=== PATIENT | female | born 1950 | race Caucasian/White ===

== ENCOUNTER 2017-02-17 00:20 | Inpatient (IN) | payer MEDICARE, OTHER, MEDICAID ==
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
[2017-02-17] MEDS ORDERED: Sodium Chloride 0.9% 10 ML Syringe FLUSH PRN (03:46)
[2017-02-17] MEDS ORDERED: Furosemide 40 MG/4 ML VIAL IV ONE (03:46)
[2017-02-17] MEDS ORDERED: Acetaminophen 325 MG Tab PO ONE (03:46)
[2017-02-17] MEDS ORDERED: diphenhydrAMINE 50 MG/ML SDV IV ONE (03:46)
[2017-02-17] MEDS: Piperacillin/Tazobactam 3.375 GM in Sodium Chloride 0.9% 100 ML IV SCH ×2 (05:41→10:42)
[2017-02-17] MEDS: Insulin Aspart 100 Units/ML 3 ML Pen SUBCUT SCH ×3 (05:42→12:21)
[2017-02-17] MEDS ORDERED: Aspirin 325 MG Tab PO SCH (08:00)
[2017-02-17] MEDS ORDERED: Lisinopril 5 MG Tab PO SCH (08:00)
[2017-02-17] MEDS ORDERED: Citalopram 20 MG Tab PO SCH (08:00)
[2017-02-17] MEDS ORDERED: Cholecalciferol (Vitamin D3) 1,000 Unit Tab PO SCH (08:00)
[2017-02-17] MEDS ORDERED: Multivitamins with Iron and Minerals Tab.Chew PO SCH (08:00)
[2017-02-17] MEDS ORDERED: Insulin Detemir 100 Units/ML 3 ML Pen SUBCUT SCH ×2 (08:00→18:00)
[2017-02-17 08:40] LABS: CHLORIDE,CL 105 mmol/L (98-107); SODIUM,NA 139 mmol/L (136-145)
--- NOTE | 2017-02-17 12:27 | PCM.PN ---
- General Info Date of Service: 02/17/17 Functional Status: Reports: tolerating diet - Review of Systems General: Reports: Weakness, Other (feels a little better today) HEENT: Reports: no symptoms Pulmonary: Reports: no symptoms Cardiovascular: Reports: No Symptoms Gastrointestinal: Reports: No symptoms Genitourinary: Reports: no symptoms Musculoskeletal: Reports: no symptoms Skin: Reports: no symptoms Neurological: Reports: Pre-Existing Deficit Psychiatric: Reports: no symptoms - Patient Data Vitals - most recent: Last Vital Signs Temp 97.8 F 02/17/17 08:00 Pulse 73 02/17/17 08:00 Resp 17 02/17/17 08:00 BP 151/55 H 02/17/17 08:00 Pulse Ox 91 L 02/17/17 08:00 Weight - most recent: 274 lb I&O - last 24 hours: Intake & Output 02/16/17 02/17/17 02/17/17 22:59 06:59 14:59 Output Total 800 300 Balance -800 -300 Lab Results last 24 hrs: Laboratory Results - last 24 hr 02/17/17 02/17/17 02/17/17 Range/Units 07:00 07:00 07:00 WBC 9.1 (4.0-10.2) K/uL RBC 2.47 L (3.77-5.09) M/uL Hgb 6.8 L* (11.7-15.5) g/dL Hct 21.9 L* (34.0-46.0) % MCV 88.7 (84.0-98.0) fL MCH 27.5 L (28.2-33.3) pg MCHC 31.1 L (31.7-36.0) g/dL RDW 15.3 H (11.2-14.1) % Plt Count 234 (150-350) K/uL Neut % (Auto) 63.7 (45.0-80.0) % Lymph % (Auto) 30.2 (10.0-50.0) % [place] % (Auto) 3.9 (2.0-14.0) % Eos % (Auto) 1.8 (0.0-5.0) % Baso % (Auto) 0.4 (0.0-2.0) % Neut # (Auto) 5.81 (1.40-7.00) K/uL Lymph # (Auto) 2.76 (0.50-3.50) K/uL [place] # (Auto) 0.36 (0.00-1.00) K/uL Eos # (Auto) 0.16 (0.00-0.50) K/uL Baso # (Auto) 0.04 (0.00-0.20) K/uL PT 11.0 (9.8-11.7) SEC INR 1.0 APTT 24.2 (23.5-30.0) SEC Sodium 139 (136-145) mmol/L Potassium 4.0 (3.5-5.1) mmol/L Chloride 105 (98-107) mmol/L Carbon Dioxide 27.2 (21.0-32.0) mmol/L BUN 46 H (7-18) mg/dL Creatinine 0.93 (0.51-1.17) mg/dL Est Cr Clr Drug Dosing 54.95 mL/min Estimated GFR (MDRD) > 60 mL/min Glucose 262 H* (74-106) mg/dL POC Glucose (65-110) mg/dl Calcium 8.6 (8.5-10.1) mg/dL Blood Type Gel Antibody Screen Crossmatch 02/17/17 02/17/17 02/17/17 Range/Units 07:00 08:50 11:27 WBC (4.0-10.2) K/uL RBC (3.77-5.09) M/uL Hgb (11.7-15.5) g/dL Hct (34.0-46.0) % MCV (84.0-98.0) fL MCH (28.2-33.3) pg MCHC (31.7-36.0) g/dL RDW (11.2-14.1) % Plt Count (150-350) K/uL Neut % (Auto) (45.0-80.0) % Lymph % (Auto) (10.0-50.0) % [place] % (Auto) (2.0-14.0) % Eos % (Auto) (0.0-5.0) % Baso % (Auto) (0.0-2.0) % Neut # (Auto) (1.40-7.00) K/uL Lymph # (Auto) (0.50-3.50) K/uL [place] # (Auto) (0.00-1.00) K/uL Eos # (Auto) (0.00-0.50) K/uL Baso # (Auto) (0.00-0.20) K/uL PT (9.8-11.7) SEC INR APTT (23.5-30.0) SEC Sodium (136-145) mmol/L Potassium (3.5-5.1) mmol/L Chloride (98-107) mmol/L Carbon Dioxide (21.0-32.0) mmol/L BUN (7-18) mg/dL Creatinine (0.51-1.17) mg/dL Est Cr Clr Drug Dosing mL/min Estimated GFR (MDRD) mL/min Glucose (74-106) mg/dL POC Glucose 192 H 248 H (65-110) mg/dl Calcium (8.5-10.1) mg/dL Blood Type A NEGATIVE Gel Antibody Screen Positive Crossmatch See Detail Med Orders - Current: Current Medications Aspirin (Aspirin) 325 mg PO DAILY [facility] Last Admin: 02/17/17 08:42 Dose: 325 mg Cholecalciferol (Vitamin D3) 2,000 units PO DAILY [facility] Last Admin: 02/17/17 08:42 Dose: 2,000 units Citalopram Hydrobromide (Celexa) 20 mg PO DAILY [facility] Last Admin: 02/17/17 08:42 Dose: 20 mg Piperacillin Sod/Tazobactam (Sod 3.375 gm/ Sodium Chloride) 100 mls @ 200 mls/ hr IV Q6H [facility] Last Admin: 02/17/17 10:42 Dose: 200 mls/hr Insulin Aspart (Novolog) 12 unit SUBCUT TIDM [facility] Last Admin: 02/17/17 12:21 Dose: 12 unit Insulin Detemir (Levemir) 62 unit SUBCUT QPM [facility] Insulin Detemir (Levemir) 52 unit SUBCUT QAM [facility] Lisinopril (Prinivil) 10 mg PO BID [facility] Last Admin: 02/17/17 08:41 Dose: 10 mg Multivitamins/Folic Acid/Vitamin C (Cerovite Jr) 0.5 each PO BID [facility] Last Admin: 02/17/17 08:41 Dose: 0.5 each Sodium Chloride (Saline Flush) 10 ml FLUSH ASDIRECTED PRN PRN Reason: Keep Vein Open Discontinued Medications Acetaminophen (Tylenol) 650 mg PO NOW ONE Stop: 02/17/17 03:47 Diphenhydramine HCl (Benadryl) 25 mg IV ONETIME ONE Stop: 02/17/17 03:47 Furosemide (Lasix) 40 mg IV NOW ONE Stop: 02/17/17 03:47 Last Admin: 02/17/17 05:41 Dose: 40 mg Insulin Detemir (Levemir) 0 unit SUBCUT QAM [facility] Last Admin: 02/17/17 08:43 Dose: 52 units - Exam General: alert, cooperative, no acute distress HEENT: Mucous membr. moist/pink Neck: trachea midline, no JVD Lungs: Normal respiratory effort, Decreased breath sounds Cardiovascular: Regular Rate, Regular Rhythm GI/Abdominal Exam: Normal Bowel Sounds, Soft, Non-Tender, No Organomegaly, No Distention, No Abnormal Bruit, No Mass, Pelvis Stable (Female) Exam: Deferred Back Exam: Other (kyphosis) Extremities: Pedal Edema, Redness (usual) Skin: warm, dry, intact Neurological: other (pre-existing deficit) Psy/Mental Status: alert, normal affect, normal mood - Problem List & Annotations (1) Elevated BUN SNOMED Code(s): 539344790 Code(s): R79.9 - ABNORMAL FINDING OF BLOOD CHEMISTRY, UNSPECIFIED Status: Acute Current Visit: Yes (2) Anemia SNOMED Code(s): 926096026 Code(s): D64.9 - ANEMIA, UNSPECIFIED Status: Acute Priority: High Current Visit: Yes Qualifiers: Anemia type: unspecified type Qualified Code(s): D64.9 - Anemia, unspecified (3) Cellulitis SNOMED Code(s): 820789689 Code(s): L03.90 - CELLULITIS, UNSPECIFIED Status: Acute Current Visit: Yes Qualifiers: Site of cellulitis: unspecified site Qualified Code(s): L03.90 - Cellulitis , unspecified (4) Congestive heart failure SNOMED Code(s): 13941563 Code(s): I50.9 - HEART FAILURE, UNSPECIFIED Status: Acute Current Visit: Yes (5) Diabetes mellitus type 2 SNOMED Code(s): 30654400 Code(s): E11.9 - TYPE 2 DIABETES MELLITUS WITHOUT COMPLICATIONS Status: Acute Current Visit: Yes (6) Hyperglycemia SNOMED Code(s): 35323591 Code(s): R73.9 - HYPERGLYCEMIA, UNSPECIFIED Status: Acute Current Visit: Yes (7) Radial nerve lesions SNOMED Code(s): 674475300 Code(s): G56.30 - LESION OF RADIAL NERVE, UNSPECIFIED UPPER LIMB Status: Acute Current Visit: No - Problem List Review Problem List Initiated/Reviewed/Updated: Yes - Plan Plan:: 02/17/17 12:00 Todd Alarcon MD Feeling better today. Mild shortness of breath. Leg improved. Was just treated x10 days for out patient cellulitis with doxycycline. On 02/05/17 in clinic Hgb was 10.3. No obvious bleeding. Today hgb 6.8. Type and screen reveals A- with antibiotics. We do not have any blood available in [facility] due to the antibiotics. Also told she has CHF (known). Family desires transfer to [facility]. I called [facility] ([facility]ene) about 12:[address] Harmon who will accept the patient for transfer. Medically necessary to transfer per ambulance.
[2017-02-17] MEDS ORDERED: oxyCODONE 5 MG Tab PO ONE (12:36)
--- NOTE | 2017-02-17 12:54 | PCM.DCSUM1 ---
Discharge Summary - Discharge Data Discharge Date: 02/17/17 Discharge Disposition: DC/Tfer to Acute Hospital 02 Condition: Good - Discharge Diagnosis/Problem(s) (1) Elevated BUN SNOMED Code(s): 927119407 ICD Code: R79.9 - ABNORMAL FINDING OF BLOOD CHEMISTRY, UNSPECIFIED Status: Acute Current Visit: Yes (2) Anemia SNOMED Code(s): 500833698 ICD Code: D64.9 - ANEMIA, UNSPECIFIED Status: Acute Priority: High Current Visit: Yes Qualifiers: Qualified Code(s): D64.9 - Anemia, unspecified (3) Cellulitis SNOMED Code(s): 168196478 ICD Code: L03.90 - CELLULITIS, UNSPECIFIED Status: Acute Current Visit: Yes Qualifiers: Qualified Code(s): L03.90 - Cellulitis, unspecified (4) Congestive heart failure SNOMED Code(s): 57671174 ICD Code: I50.9 - HEART FAILURE, UNSPECIFIED Status: Acute Current Visit : Yes (5) Diabetes mellitus type 2 SNOMED Code(s): 94443849 ICD Code: E11.9 - TYPE 2 DIABETES MELLITUS WITHOUT COMPLICATIONS Status: Acute Current Visit: Yes (6) Hyperglycemia SNOMED Code(s): 17918821 ICD Code: R73.9 - HYPERGLYCEMIA, UNSPECIFIED Status: Acute Current Visit : Yes (7) Radial nerve lesions SNOMED Code(s): 677579919 ICD Code: G56.30 - LESION OF RADIAL NERVE, UNSPECIFIED UPPER LIMB Status: Acute Current Visit: No - Patient Instructions Diet: Diabetic Diet Activity: Bedrest, May Use Bathroom - Discharge Plan Home Medications: Home Meds Aspirin 325 mg PO DAILY 07/05/13 [History] Cholecalciferol (Vitamin D3) [Vitamin D3] 2,000 units PO DAILY 07/05/13 [History ] Citalopram [Citalopram HBr] 20 mg PO DAILY 07/05/13 [History] Furosemide [Lasix] 20 mg PO DAILY 07/05/13 [History] Insulin Aspart [Novolog Flexpen] 12 unit SQ TIDM 07/05/13 [History] Lisinopril 10 mg PO BID 07/05/13 [History] Multivitamin with Minerals [Multiple Vitamin] 0.5 each PO BID 07/05/13 [History] Polyethylene Glycol 3350 [Miralax] 17 gm PO DAILY PRN 07/05/13 [History] Sennosides/Docusate Sodium [Stool Softener] 1 each PO DAILY PRN 07/05/13 [ History] oxyCODONE 5 mg PO Q6HR PRN 07/05/13 [History] Insulin Detemir [Levemir] 52 unit SQ QAM 02/17/17 [History] Insulin Detemir [Levemir] 62 unit SQ QPM 02/17/17 [History] Forms: ED Department Discharge Referrals: Ninoska Guzman MD [Primary Care Provider] - - Discharge Summary/Plan Comment DC Time >30 min.: No Discharge Summary/Plan Comment: Todd Alarcon MD 66 year old female started not feeling well yesterday. Recent out patient treatment for lower leg cellulitis with doxycycline for 10 days. In the clinic hgb 10.3 on 02/05/2017. Admitted last night through ER for dx cellulits, DM type 2 out of control, CHF, anemia symptomatic. Hgb today 6.8, last night 7.2 BUN 50. She is A negative blood type with antibodies. We have no typed blood available in [facility] due to the antibodies. Family and patient wishes transfer to [facility]. Dr. Harmon will accept her for transfer. - Patient Data Vitals - Most Recent: Last Vital Signs Temp 97.8 F 02/17/17 08:00 Pulse 73 02/17/17 08:00 Resp 17 02/17/17 08:00 BP 151/55 H 02/17/17 08:00 Pulse Ox 91 L 02/17/17 08:00 Weight - Most Recent: 274 lb I&O - Last 24 hours: Intake & Output 02/16/17 02/17/17 02/17/17 22:59 06:59 14:59 Output Total 800 300 Balance -800 -300 Lab Results - Last 24 hrs: Laboratory Results - last 24 hr 02/17/17 02/17/17 02/17/17 Range/Units 07:00 07:00 07:00 WBC 9.1 (4.0-10.2) K/uL RBC 2.47 L (3.77-5.09) M/uL Hgb 6.8 L* (11.7-15.5) g/dL Hct 21.9 L* (34.0-46.0) % MCV 88.7 (84.0-98.0) fL MCH 27.5 L (28.2-33.3) pg MCHC 31.1 L (31.7-36.0) g/dL RDW 15.3 H (11.2-14.1) % Plt Count 234 (150-350) K/uL Neut % (Auto) 63.7 (45.0-80.0) % Lymph % (Auto) 30.2 (10.0-50.0) % Rincon % (Auto) 3.9 (2.0-14.0) % Eos % (Auto) 1.8 (0.0-5.0) % Baso % (Auto) 0.4 (0.0-2.0) % Neut # (Auto) 5.81 (1.40-7.00) K/uL Lymph # (Auto) 2.76 (0.50-3.50) K/uL Rincon # (Auto) 0.36 (0.00-1.00) K/uL Eos # (Auto) 0.16 (0.00-0.50) K/uL Baso # (Auto) 0.04 (0.00-0.20) K/uL PT 11.0 (9.8-11.7) SEC INR 1.0 APTT 24.2 (23.5-30.0) SEC Sodium 139 (136-145) mmol/L Potassium 4.0 (3.5-5.1) mmol/L Chloride 105 (98-107) mmol/L Carbon Dioxide 27.2 (21.0-32.0) mmol/L BUN 46 H (7-18) mg/dL Creatinine 0.93 (0.51-1.17) mg/dL Est Cr Clr Drug Dosing 54.95 mL/min Estimated GFR (MDRD) > 60 mL/min Glucose 262 H* (74-106) mg/dL POC Glucose (65-110) mg/dl Calcium 8.6 (8.5-10.1) mg/dL Blood Type Gel Antibody Screen Crossmatch 02/17/17 02/17/17 02/17/17 Range/Units 07:00 08:50 11:27 WBC (4.0-10.2) K/uL RBC (3.77-5.09) M/uL Hgb (11.7-15.5) g/dL Hct (34.0-46.0) % MCV (84.0-98.0) fL MCH (28.2-33.3) pg MCHC (31.7-36.0) g/dL RDW (11.2-14.1) % Plt Count (150-350) K/uL Neut % (Auto) (45.0-80.0) % Lymph % (Auto) (10.0-50.0) % Rincon % (Auto) (2.0-14.0) % Eos % (Auto) (0.0-5.0) % Baso % (Auto) (0.0-2.0) % Neut # (Auto) (1.40-7.00) K/uL Lymph # (Auto) (0.50-3.50) K/uL Rincon # (Auto) (0.00-1.00) K/uL Eos # (Auto) (0.00-0.50) K/uL Baso # (Auto) (0.00-0.20) K/uL PT (9.8-11.7) SEC INR APTT (23.5-30.0) SEC Sodium (136-145) mmol/L Potassium (3.5-5.1) mmol/L Chloride (98-107) mmol/L Carbon Dioxide (21.0-32.0) mmol/L BUN (7-18) mg/dL Creatinine (0.51-1.17) mg/dL Est Cr Clr Drug Dosing mL/min Estimated GFR (MDRD) mL/min Glucose (74-106) mg/dL POC Glucose 192 H 248 H (65-110) mg/dl Calcium (8.5-10.1) mg/dL Blood Type A NEGATIVE Gel Antibody Screen Positive Crossmatch See Detail Med Orders - Current: Current Medications Aspirin (Aspirin) 325 mg PO DAILY [facility] Last Admin: 02/17/17 08:42 Dose: 325 mg Cholecalciferol (Vitamin D3) 2,000 units PO DAILY [facility] Last Admin: 02/17/17 08:42 Dose: 2,000 units Citalopram Hydrobromide (Celexa) 20 mg PO DAILY [facility] Last Admin: 02/17/17 08:42 Dose: 20 mg Piperacillin Sod/Tazobactam (Sod 3.375 gm/ Sodium Chloride) 100 mls @ 200 mls/ hr IV Q6H [facility] Last Admin: 02/17/17 10:42 Dose: 200 mls/hr Insulin Aspart (Novolog) 12 unit SUBCUT TIDM [facility] Last Admin: 02/17/17 12:21 Dose: 12 unit Insulin Detemir (Levemir) 62 unit SUBCUT QPM [facility] Insulin Detemir (Levemir) 52 unit SUBCUT QAM [facility] Lisinopril (Prinivil) 10 mg PO BID [facility] Last Admin: 02/17/17 08:41 Dose: 10 mg Multivitamins/Folic Acid/Vitamin C (Cerovite Jr) 0.5 each PO BID [facility] Last Admin: 02/17/17 08:41 Dose: 0.5 each Sodium Chloride (Saline Flush) 10 ml FLUSH ASDIRECTED PRN PRN Reason: Keep Vein Open Discontinued Medications Acetaminophen (Tylenol) 650 mg PO NOW ONE Stop: 02/17/17 03:47 Diphenhydramine HCl (Benadryl) 25 mg IV ONETIME ONE Stop: 02/17/17 03:47 Furosemide (Lasix) 40 mg IV NOW ONE Stop: 02/17/17 03:47 Last Admin: 02/17/17 05:41 Dose: 40 mg Insulin Detemir (Levemir) 0 unit SUBCUT QAM [facility] Last Admin: 02/17/17 08:43 Dose: 52 units Oxycodone HCl (Oxycodone) 5 mg PO ONETIME ONE Stop: 02/17/17 12:37 *Q Meaningful Use (DIS) - VTE *Q VTE Criteria *Q: VTE Anticoagulation Contraindications: Comp/Late Effect of Care - Stroke *Q Stroke Criteria *Q: - AMI *Q AMI Criteria *Q:
[2017-02-17 13:26] VITALS: BP 153/62
[2017-02-17] MEDS ORDERED: fentaNYL 100 MCG/2 ML SDV IVPUSH ONE (13:32)
[2017-02-18] MEDS ORDERED: Insulin Detemir 100 Units/ML 3 ML Pen SUBCUT SCH (08:00)
== END 2017-02-17 13:43 | DRG 812 ==
LOC: LL.ED 00:20 → LL.MS 02:35 → LL.ED 02:40
PROVIDERS: ADMIT Family Medicine; ATTEND Family Medicine
DX: D64.9 Anemia, unspecified (principal); L03.119 Cellulitis of unspecified part of limb; E11.65 Type 2 diabetes mellitus with hyperglycemia; Z79.4 Long term (current) use of insulin; E66.9 Obesity, unspecified; Z68.30 Body mass index [BMI] 30.0-30.9, adult; Z79.82 Long term (current) use of aspirin; Z79.899 Other long term (current) drug therapy; I11.0 Hypertensive heart disease with heart failure; I50.9 Heart failure, unspecified; G56.30 Lesion of radial nerve, unspecified upper limb; R79.9 Abnormal finding of blood chemistry, unspecified
CPT/HCPCS: 36415; 71020; 80048; 81001; 82962; 83036; 83880; 85025; 85610; 85730; 86850; 86900; 86901; 87040; 99284; A9270-GY; J1815-GY; J1940; J2543; J7050

== ENCOUNTER 2017-08-16 16:31 | Emergency (ER) | payer MEDICARE, MEDICAID ==
[2017-08-16] MEDS ORDERED: Sodium Chloride 0.9% 1,000 ML IV SCH ×2 (17:00→18:30)
[2017-08-16] MEDS ORDERED: Sodium Chloride 0.9% 10 ML Syringe FLUSH PRN (17:01)
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
[2017-08-16 17:55] LABS: CHLORIDE,CL 95 mmol/L (98-107); SODIUM,NA 133 mmol/L (136-145)
[2017-08-16] MEDS ORDERED: Insulin Regular, Human 100 Units/ML 3 ML Vial IV ONE (19:15)
[2017-08-16 19:45] LABS: O2 DELIVERY DEVICE NASAL CANNULA
[2017-08-16] MEDS ORDERED: Levofloxacin/Dextrose 5%-Water 750 MG in Premix Bag 1 BAG IV SCH (19:45)
[2017-08-16 19:46] LABS: O2 FLOW RATE 2 L/min; PCO2 ARTERIAL 40 mmHG (35-45); PO2 ARTERIAL 67 mmHG (80-105)
[2017-08-16 19:47] LABS: BASE EXCESS ARTERIAL -3 mmol/L (-2-3); BICARBONATE,ARTERIAL 22.7 mmol/L (22-26); O2 SATURATION ARTERIAL 92 % (95-98)
[2017-08-16 20:52] VITALS: BP 167/53
== END 2017-08-16 19:55 ==
LOC: LL.ED 16:31
DX: A41.9 Sepsis, unspecified organism (principal); E11.10 Type 2 diabetes mellitus with ketoacidosis without coma; E11.65 Type 2 diabetes mellitus with hyperglycemia; N39.0 Urinary tract infection, site not specified; I10 Essential (primary) hypertension; Z87.891 Personal history of nicotine dependence; Z79.4 Long term (current) use of insulin; Z79.899 Other long term (current) drug therapy; Z88.8 Allergy status to other drugs, medicaments and biological substances; Z91.013 Allergy to seafood
CPT/HCPCS: 36415; 51702; 71045; 74019; 80048; 81001; 82803; 83605; 85025; 87086; 87088; 87804; 96361; 96365; 96375; 99285; J1815; J1956; J7030; 87186

== ENCOUNTER 2023-10-09 14:00 | Inpatient (IN) | payer MEDICARE, MEDICAID ==
[2023-10-09 14:18] LABS: BASOPHILS ABSOLUTE AUTO 0.03 K/uL (0.00-0.20); BASOPHILS PERCENT AUTO 0.3 % (0.0-2.0); EOSINOPHILS ABSOLUTE AUTO 0.17 K/uL (0.00-0.50); EOSINOPHILS PERCENT AUTO 1.9 % (0.0-5.0); HEMATOCRIT 32.5 % (34.0-46.0); HEMOGLOBIN 9.1 g/dL (11.7-15.5); LYMPHOCYTES ABSOLUTE AUTO 0.91 K/uL (0.50-3.50); LYMPHOCYTES PERCENT AUTO 10.1 % (10.0-50.0); MEAN CORPUSCULAR VOLUME 82.3 fL (84.0-98.0); MONOCYTES ABSOLUTE AUTO 0.56 K/uL (0.00-1.00); MONOCYTES PERCENT AUTO 6.2 % (2.0-14.0); NEUTROPHILS ABSOLUTE AUTO 7.34 K/uL (1.40-7.00); NEUTROPHILS PERCENT AUTO 81.5 % (45.0-80.0); PLATELET COUNT,PLT 219 K/uL (150-350); RED BLOOD CELL COUNT 3.95 M/uL (3.77-5.09); RED CELL DISTRIBUTION WIDTH 17.9 % (11.2-14.1)
[2023-10-09 14:38] LABS: PROTHROMBIN TIME 10.3 SEC (9.0-11.1)
[2023-10-09 14:49] LABS: ALANINE AMINOTRANSFERASE,ALT 7 U/L (12-78); ALBUMIN 3.2 g/dL (3.4-5.0); ALKALINE PHOSPHATASE 92 IU/L (46-116); ASPARTATE AMNIOTRANSFERASE,AST 6 U/L (15-37); BILIRUBIN TOTAL 0.2 mg/dL (0.2-1.0); BLOOD UREA NITROGEN,BUN 42 mg/dL (7-18); CALCIUM 8.8 mg/dL (8.5-10.1); CARBON DIOXIDE,CO2 28.1 mmol/L (21.0-32.0); CHLORIDE,CL 110 mmol/L (98-107); CREATININE 1.63 mg/dL (0.51-1.17); GLUCOSE RANDOM 92 mg/dL (70-99); POTASSIUM,K 4.8 mmol/L (3.5-5.1); PRO B-TYPE NATRIUR PEPT,BNPPRO 6042 pg/mL (0-125); PROTEIN TOTAL,TP 7.2 g/dL (6.4-8.2); SODIUM,NA 145 mmol/L (136-145)
[2023-10-09 14:54] LABS: ANION GAP 11.7 meq/L (7-15); ESTIMATED GFR 33 mL/min (>=60)
[2023-10-09] MEDS: Bumetanide 2.5 MG/10 ML MDV IVPUSH ONE (16:10)
[2023-10-09] MEDS: Sodium Chloride 0.9% 10 ML Syringe FLUSH PRN (16:14)
[2023-10-09] MEDS ORDERED: Nystatin Topical Powder 15 GM Bottle TOP PRN (16:36)
[2023-10-09] MEDS ORDERED: Acetaminophen 325 MG Tab PO PRN (16:37)
[2023-10-09] MEDS ORDERED: ALOE VERA TOP PRN (16:48)
[2023-10-09] MEDS ORDERED: [UNRECOGNIZED DRUG - OTHER] TOP PRN (16:48)
[2023-10-09] MEDS ORDERED: TROLAMINE SALICYLATE TOP PRN (16:48)
[2023-10-09] MEDS ORDERED: Magnesium Hydroxide 400 MG/5 ML Susp 30 ML Cup PO PRN (16:48)
[2023-10-09] MEDS ORDERED: Glucagon,Human Recombinant 1 MG Vial IM PRN (16:57)
[2023-10-09] MEDS ORDERED: 50% Dextrose in Water 50 ML Syringe IVPUSH PRN (16:57)
[2023-10-09] MEDS: Insulin Lispro 100 Units/ML 3 ML Vial SUBCUT SCH (18:51)
[2023-10-09] MEDS: Potassium Chloride 20 MEQ Tab.ER PO SCH (18:56)
[2023-10-09] MEDS: Enoxaparin 40 MG/0.4 ML Syringe SUBCUT SCH (18:57)
[2023-10-09] MEDS ORDERED: INSULIN DEGLUDEC SUBCUT SCH (20:00)
[2023-10-10] MEDS: Citalopram 20 MG Tab PO SCH (07:45)
[2023-10-10] MEDS: Cholecalciferol (Vitamin D3) 25 MCG Tab PO SCH (07:45)
[2023-10-10] MEDS: Pantoprazole 40 MG Tab.CR PO SCH (07:45)
[2023-10-10] MEDS: Magnesium Chloride 64 MG Tab.ER PO SCH (07:45)
[2023-10-10] MEDS ORDERED: Insulin Glarg,Human.Rec.Analog 100 Unit/ML 10 ML Vial SUBCUT SCH (08:00)
[2023-10-10 08:32] LABS: ALBUMIN 3.3 g/dL (3.4-5.0); BILIRUBIN TOTAL 0.2 mg/dL (0.2-1.0); CALCIUM 8.6 mg/dL (8.5-10.1); CARBON DIOXIDE,CO2 28.8 mmol/L (21.0-32.0); CREATININE 1.75 mg/dL (0.51-1.17); EST CRCL DRUG DOSING (CG) 24.35 mL/min; PROTEIN TOTAL,TP 7.4 g/dL (6.4-8.2)
[2023-10-10 08:42] LABS: BASOPHILS ABSOLUTE AUTO 0.04 K/uL (0.00-0.20); BASOPHILS PERCENT AUTO 0.4 % (0.0-2.0); EOSINOPHILS ABSOLUTE AUTO 0.13 K/uL (0.00-0.50); EOSINOPHILS PERCENT AUTO 1.3 % (0.0-5.0); HEMATOCRIT 34.8 % (34.0-46.0); HEMOGLOBIN 9.4 g/dL (11.7-15.5); LYMPHOCYTES ABSOLUTE AUTO 0.81 K/uL (0.50-3.50); LYMPHOCYTES PERCENT AUTO 8.1 % (10.0-50.0); MEAN CORPUSCULAR VOLUME 85.1 fL (84.0-98.0); MONOCYTES ABSOLUTE AUTO 0.51 K/uL (0.00-1.00); MONOCYTES PERCENT AUTO 5.1 % (2.0-14.0); NEUTROPHILS ABSOLUTE AUTO 8.45 K/uL (1.40-7.00); NEUTROPHILS PERCENT AUTO 85.1 % (45.0-80.0); PLATELET COUNT,PLT 226 K/uL (150-350); RED BLOOD CELL COUNT 4.09 M/uL (3.77-5.09); RED CELL DISTRIBUTION WIDTH 17.9 % (11.2-14.1); WHITE BLOOD CELL COUNT,WBC 9.9 K/uL (4.0-10.2)
[2023-10-10 08:52] LABS: ANION GAP 11.2 meq/L (7-15)
[2023-10-10 09:14] LABS: APPEARANCE,URINE SLIGHTLY CLOUDY; BILIRUBIN,URINE NEGATIVE (NEGATIVE); COLOR,URINE YELLOW; GLUCOSE,URINE NEGATIVE (NEGATIVE); KETONES,URINE NEGATIVE (NEGATIVE); LEUKOCYTE ESTERASE,URINE TRACE (NEGATIVE); NITRITE,URINE POSITIVE (NEGATIVE); OCCULT BLOOD,URINE NEGATIVE (NEGATIVE); PROTEIN,URINE TRACE mg/dL (NEGATIVE); UROBILINOGEN,URINE 0.2 E.U./dL (0.2-1.0)
[2023-10-10 09:18] LABS: BACTERIA,URINE FEW /HPF (NONE TO FEW); EPITHELIAL CELLS,URINE OCCASIONAL /LPF; RBC,URINE 0-5 /HPF
[2023-10-10] MEDS: Bumetanide 2.5 MG/10 ML MDV IVPUSH ONE (09:52)
[2023-10-10 10:12] VITALS: PULSE 80
[2023-10-10 11:21] VITALS: BP 152/44
[2023-10-10] MEDS: Acetaminophen/oxyCODONE 325-5 MG Tab PO ONE (12:00)
[2023-10-10] MEDS: Acetaminophen/oxyCODONE 325-5 MG Tab ONE (12:03)
== END 2023-10-10 12:30 | DRG 291 ==
LOC: SUPCPDRO 14:00 → LL.ED 14:00 → LL.MS 15:05 → UNDOADMIN 15:05 → LL.MS 16:38 → UNDODISIN 10-10 12:30
PROVIDERS: ADMIT Physician Assistant; ATTEND Physician Assistant
DX: I11.0 Hypertensive heart disease with heart failure (principal); I50.23 Acute on chronic systolic (congestive) heart failure; Z68.43 Body mass index [BMI] 50.0-59.9, adult; I50.9 Heart failure, unspecified; Z66 Do not resuscitate; E87.8 Other disorders of electrolyte and fluid balance, not elsewhere classified; K21.9 Gastro-esophageal reflux disease without esophagitis; R79.89 Other specified abnormal findings of blood chemistry; E11.9 Type 2 diabetes mellitus without complications; Z91.030 Bee allergy status; N28.9 Disorder of kidney and ureter, unspecified; E55.9 Vitamin D deficiency, unspecified; B36.9 Superficial mycosis, unspecified; F32.A Depression, unspecified; E66.9 Obesity, unspecified; R09.02 Hypoxemia; Z91.013 Allergy to seafood; Z93.1 Gastrostomy status; Z79.4 Long term (current) use of insulin; Z79.899 Other long term (current) drug therapy; Z88.8 Allergy status to other drugs, medicaments and biological substances
CPT/HCPCS: 36415; 51702; 71045; 80053; 81001; 81003; 82947; 83880; 84484; 85025; 85610; 87086; 87088; 87186; 93005; 93010; 94761; 96374; 99223; 99239; 99285-25; A9270-GY; J1650; J1815-GY; J3490